=== PATIENT | female | born 1945 | race Caucasian/White ===

== ENCOUNTER 2017-11-24 14:20 | Outpatient (CLI) | payer MEDICARE, OTHER ==
[~2017-11-24 14:20] MED LIST: HYDR-569 PO
[2017-11-24 14:32] VITALS: BP 139/92
== END 2017-11-24 15:44 | disposition home or self-care (01) ==
LOC: ORTHO 14:20
PROVIDERS: ATTEND Nurse Practitioner Family
DX: S52.502D Unspecified fracture of the lower end of left radius, subsequent encounter for closed fracture with routine healing (principal); S52.602D Unspecified fracture of lower end of left ulna, subsequent encounter for closed fracture with routine healing; Z91.040 Latex allergy status; X58.XXXD Exposure to other specified factors, subsequent encounter
CPT/HCPCS: 29075; A4590; A6449

== ENCOUNTER 2017-12-08 13:05 | Outpatient (CLI) | payer MEDICARE, OTHER ==
[2017-12-08 13:16] VITALS: BP 157/86
== END 2017-12-08 14:00 | disposition home or self-care (01) ==
LOC: ORTHO 13:05
PROVIDERS: ATTEND Nurse Practitioner Family
DX: S52.502G Unspecified fracture of the lower end of left radius, subsequent encounter for closed fracture with delayed healing (principal); S52.602G Unspecified fracture of lower end of left ulna, subsequent encounter for closed fracture with delayed healing; Z91.040 Latex allergy status; Z60.2 Problems related to living alone; X58.XXXD Exposure to other specified factors, subsequent encounter
CPT/HCPCS: 29260; 73100

== ENCOUNTER 2017-12-29 13:01 | Outpatient (CLI) | payer MEDICARE, OTHER ==
[2017-12-29 13:05] VITALS: BP 156/82
== END 2017-12-29 13:36 | disposition home or self-care (01) ==
LOC: ORTHO 13:01
PROVIDERS: ATTEND Nurse Practitioner Family
DX: S52.502D Unspecified fracture of the lower end of left radius, subsequent encounter for closed fracture with routine healing (principal); S52.602D Unspecified fracture of lower end of left ulna, subsequent encounter for closed fracture with routine healing; Z60.2 Problems related to living alone; Z91.040 Latex allergy status; X58.XXXD Exposure to other specified factors, subsequent encounter
CPT/HCPCS: 73110

== ENCOUNTER 2018-01-26 10:02 | Outpatient (CLI) | payer MEDICARE, OTHER | END 2018-01-26 10:30 | disposition home or self-care (01) | LOC: ORTHO 10:02 | PROVIDERS: ATTEND Nurse Practitioner Family | DX: S52.502D Unspecified fracture of the lower end of left radius, subsequent encounter for closed fracture with routine healing (principal); S52.602D Unspecified fracture of lower end of left ulna, subsequent encounter for closed fracture with routine healing; Z91.040 Latex allergy status; Z60.2 Problems related to living alone; X58.XXXD Exposure to other specified factors, subsequent encounter; Y93.41 Activity, dancing | CPT/HCPCS: 73110; 99213 ==